=== PATIENT | female | born 1980 | race African-American/Black ===

== ENCOUNTER 2021-09-28 14:24 | Emergency (ER) | payer BC ==
--- OUTSIDE RECORDS SUMMARY | 2021-09-28 14:27 | XMS REPORT | Continuity of Care Document ---
:1980 Author Organization [facility] t Address [address] [place] [address] Care Team Providers Name Role Phone Paul_Adrianne Attending Clinician Unavailable Paul_L Admitting Clinician Unavailable Payers Payer Name Policy Type Policy Number Effective Date Expiration Date S [place] [id number] 2018 00:00:00 [place] Problems Condition Condition Condition Status Onset Resolution Last Treating Co mments Source Name Details Category Date Date Treatment Clinician Date Essential Essential Problem Active [facility]i Hypertensi 4-02 da on on 00:00: Medical 00 Group Obesity Obesity Problem Active [facility] Allergies, Adverse Reactions, Alerts Allergy Allergy Status Severity Reaction(s) Onset Inactive Treating Comm ents Source Name Type Date Date Clinician Prozac Allergy Active [facility] Social History Smoking Status Start Date Stop Date Source Never Smoker [facility] Medications Ordered Filled Start Stop Current Ordering Indication Dosage Frequency Signature Comments Components Source Medication Medication Date Date Medication? Clinician (SIG) Name Name amlodipine amlodipine No amlodipine [facility] 2.5 mg 2.5 mg 2.5 mg da tablet TAKE tablet TAKE tablet Medical 1 TABLET 1 TABLET TAKE 1 Group (2.5 MG (2.5 MG TABLET TOTAL) BY TOTAL) BY (2.5 MG MOUTH 1 MOUTH 1 TOTAL) BY (ONE) TIME (ONE) TIME MOUTH 1 EACH DAY EACH DAY (ONE) TIME EACH DAY famotidine famotidine No famotidine [facility] 20 mg 20 mg 20 mg da tablet TAKE tablet TAKE tablet Medical 1 TABLET BY 1 TABLET BY TAKE 1 Group MOUTH TWICE MOUTH TWICE TABLET BY A DAY A DAY MOUTH TWICE A DAY ketorolac ketorolac No ketorolac [facility] 10 mg 10 mg 10 mg da tablet Take tablet Take tablet Medical 1 tablet 1 tablet Take 1 Group every 6 every 6 tablet hours by hours by every 6 oral route. oral route. hours by oral route. lisinopril lisinopril No lisinopril [facility] 20 20 20 da mg-hydrochl mg-hydrochl mg-hydroch Medical orothiazide orothiazide [facility] 25 mg 25 mg de 25 mg tablet TAKE tablet TAKE tablet 1 TABLET BY 1 TABLET BY TAKE 1 MOUTH MOUTH TABLET BY EVERYDAY AT EVERYDAY AT MOUTH BEDTIME BEDTIME EVERYDAY AT BEDTIME montelukast montelukast No montelukas [facility] 10 mg 10 mg t 10 mg da tablet TAKE tablet TAKE tablet Medical ONE (1) ONE (1) TAKE ONE Group TABLET(S) TABLET(S) (1) BY MOUTH BY MOUTH TABLET(S) ONCE A DAY. ONCE A DAY. BY MOUTH ONCE A DAY. Saxenda 3 Saxenda 3 No Saxenda 3 [facility] mg/0.5 mL mg/0.5 mL mg/0.5 mL da (18 mg/3 (18 mg/3 (18 mg/3 Med ical mL) mL) mL) Group subcutaneou subcutaneou subcutaneo s pen s pen us pen injector injector injector INJECT 3 MG INJECT 3 MG INJECT 3 UNDER THE UNDER THE MG UNDER SKIN PER SKIN PER THE SKIN WEEK WEEK PER WEEK Vitamin D2 Vitamin D2 No Vitamin D2 [facility] 1,250 mcg 1,250 mcg 1,250 mcg da (50,000 (50,000 (50,000 Medica l unit) unit) unit) Group capsule capsule capsule Vital Signs Vital Name Observation Time Observation Value Comments Source BP Diastolic 2021-02-28 00:00:00 77 mm[Hg] [facility] Height 2021-02-28 00:00:00 67 [in_i] [facility] BMI (Body Mass 2021-02-28 00:00:00 33.8 kg/m2 [facility]) Group BP Systolic 2021-02-28 00:00:00 105 mm[Hg] [facility] Body Weight 2021-02-28 00:00:00 216 [lb_av] [facility] BP Diastolic 2021-02-01 00:00:00 81 mm[Hg] [facility] Height 2021-02-01 00:00:00 67 [in_i] [facility] BMI (Body Mass 2021-02-01 00:00:00 34.5 kg/m2 [facility]) Group BP Systolic 2021-02-01 00:00:00 115 mm[Hg] [facility] Body Weight 2021-02-01 00:00:00 220 [lb_av] [facility] BP Diastolic 2019-02-04 00:00:00 87 mm[Hg] [facility] Height 2019-02-04 00:00:00 67 [in_i] [facility] BMI (Body Mass 2019-02-04 00:00:00 36.3 kg/m2 [facility]) Group BP Systolic 2019-02-04 00:00:00 125 mm[Hg] [facility] Body Weight 2019-02-04 00:00:00 232 [lb_av] [facility] BP Diastolic 2019-01-28 00:00:00 81 mm[Hg] [facility] Height 2019-01-28 00:00:00 67 [in_i] [facility] BMI (Body Mass 2019-01-28 00:00:00 5 kg/m2 [facility]) Group BP Systolic 2019-01-28 00:00:00 121 mm[Hg] [facility] Body Weight 2019-01-28 00:00:00 32 [lb_av] [facility] Procedures Procedure Date / Time Performing Clinician Source Performed US, transvaginal 2021-02-28 00:00:00 [facility], screening, 2021-02-01 00:00:00 [facility] MAMMO, screening, 2019-02-04 00:00:00 [facility] Breast Surgery [facility] Plan of Care Planned Activity Planned Date Details Comments Source Diagnostic Test 2021-02-01 CBC w/ auto diff [facility] 00:00:00 [code = CBC w/ Group auto diff] Diagnostic Test 2021-02-01 CMP, serum or [facility] 00:00:00 plasma [code = Group CMP, serum or plasma] Diagnostic Test 2021-02-01 lipid panel, serum [facility] Pending 00:00:00 [code = lipid Group panel, serum] Diagnostic Test 2021-02-01 HBsAg (hepatitis B [facility] Pending 00:00:00 surface Ag), serum Group [code = HBsAg (hepatitis B surface Ag), serum] Diagnostic Test 2021-02-01 TSH + free T4, [facility] Pending 00:00:00 serum [code = TSH Group + free T4, serum] Diagnostic Test 2021-02-01 pap, LB + HPV [facility] 00:00:00 [code = pap, LB + Group HPV] Encounters Start End Encounter Admission Attending Care Care Encounter Source Date/Time Date/Time Type Type Clinicians Facility Department ID 2021-02-28 2021-02-28 Outpatient Paul_L [facility] [id number] [facility] 01:02:00 01:02:00 [facility] 2021-02-28 2021-02-28 [facility] [place] - [id number] [facility] 00:00:00 00:00:00 [facility] MD: [address] [address] , Ph. [phone] 2021-02-01 2021-02-01 [id number] [facility] 04:48:00 04:48:00 [facility] 2021-02-01 2021-02-01 Ros[facility] [place] - [id number] [facility] 00:00:00 00:00:00 [facility] silver MD: [address] [address] , Ph. [phone] 2021-01-11 2021-01-11 Outpatient Rutledge_L [facility] [id number] [facility] 10:27:00 10:27:00 330 [facility] 2020-11-04 2020-11-04 Outpatient Rutledge_L [facility] [id number] [facility] 12:13:00 12:13:00 121 [facility] 2020-07-05 2020-07-05 Outpatient Rutledge_L [facility] [id number] [facility] 10:59:00 10:59:00 921 [facility] 2020-07-01 2020-07-01 Outpatient Rutledge_L [facility] [id number] [facility] 10:40:00 10:40:00 917 [facility] 2019-04-22 2019-04-22 Outpatient Rutledge_L [facility] [id number] [facility] 09:30:00 09:30:00 810 [facility] 2019-02-04 2019-02-04 Ros[facility] [place] - [id number] M [facility] 00:00:00 00:00:00 [facility] MD: [address] [place] [phone] , Ph. [phone] 2019-01-28 2019-01-28 Ros[facility] [place] - [id number] M [facility] 00:00:00 00:00:00 [facility] MD: [address] [place] [phone] , Ph. [phone] Results Test Description Test Time Test Comments Results Result Comments Source pap, LB + HPV 2021-02-08 00:00:00 Test Item Value Reference Range Interpretation Comme nts HPV type-detect 3.0 by next gen sequencing (reflex to HPV-16 ris k not detected assessment status) (test code = HPV type-detect 3.0 by next gen sequencing (reflex to HPV-16 risk assessment status)) liquid Pap test (test code = liquid Pap test) [facility] + [id number] 00:00:00 Test Item Value Reference Range Interpretation Comments HPV type-detect 3.0 by next gen not detected sequencing (reflex to HPV-16 risk assessment status) (test code = HPV type-detect 3.0 by next gen sequencing (reflex to HPV-16 risk assessment status)) liquid Pap test (test code = normal liquid Pap test) [facility] W Auto Differential panel - [id number] 01:59:00 Test Item Value Reference Range Interpretation Comments white blood count (test code = 6.1 K/uL 4.0-11.5 white blood count) red blood count (test code = red 4.85 M/uL 3.80-5.20 blood count) hemoglobin (test code = 11.8 g/dL 10.5-15.7 hemoglobin) hematocrit (test code = 38.2 % 34.0-50.0 hematocrit) MCV [Entitic volume] (test code = 78.8 fL 86-100 L 09677-8) mean corpuscular hemoglobin (test 24.3 pg 26.2-33.4 L code = mean corpuscular hemoglobin) mean corpuscular HGB conc (test 30.9 g/dL 30-34 code = mean corpuscular HGB conc) red cell distribution width (test 17.0 % 12.0-15.5 H code = red cell distribution width) platelet count (test code = 324 K/uL 165-450 platelet count) mean platelet volume (test code = 10.2 fL 9.4-12.6 mean platelet volume) Segmented neutrophils/100 60.2 % 44.4-80.1 leukocytes in Blood (test code = 58474-7) Immature granulocytes [#/volume] 0.0 K/uL 0.0-0.03 H in Blood (test code = 29205-6) lymphocyte% (test code = 30.4 % 10.0-50.0 lymphocyte%) mono % (test code = mono %) 6.2 % 3.6-12.0 eos % (test code = eos %) 2.0 % 0.0-5.4 Basophils/100 leukocytes in 0.7 % 0.1-1.2 Unspecified specimen (test code = 80415-9) Band form neutrophils [#/volume] 3.68 K/uL 1.56-6.13 in Blood (test code = 41983-7) Lymphocytes [#/volume] in 1.9 K/uL 1.18-3.74 Unspecified specimen by Automated count (test code = 99769-4) mono # (test code = mono #) 0.38 K/uL 0.24-0.86 eos # (test code = eos #) 0.12 K/uL 0.04-0.36 basophil # (test code = basophil 0.04 K/uL 0.01-0.08 #) NRBC% (test code = NRBC%) 0 /100 WBC 0-0.2 NRBC# (test code = NRBC#) 0 K/uL [facility], method unspecified - [id number] 01:59:00NeutrophilsBandLymphocyteAtypical LymphMonocyteEosinophilBasophilMetamyelocyteMyelocyteAbs Neutrophil Count (Man)Abs Lymph Count (Man)Abs Monocyte Count (Man)Abs Eosinophil Count (Man)Abs Basophil Count (Man)Platelet EstimatePlatelet MorphologyHypochromasiaPoikilocytosisAnisocytosisOvalocytesToxic Gran ulationHypersegmented PolysRouleauToxic VacuolationSmudge CellsMaLackey Memorial HospitalComprehensive metabolic 2000 panel - Serum or [id number] 01:59:00 Test Item Value Reference Range Interpretation Comments Glucose [Mass/volume] in Serum or 84 mg/dL 74-106 Plasma (test code = 2345-7) Urea nitrogen [Mass/volume] in 11 mg/dL 6-20 Serum or Plasma (test code = 3094-0) osmolality calculated,serum (test 271 mOsm/kg 280-300 L code = osmolality calculated,serum) creatinine (test code = 1.0 mg/dL 0.50-0.90 H creatinine) glomerular filtration rate (test >60.00 code = glomerular filtration rate) Urea nitrogen/Creatinine [Mass 11.0 12-20 L Ratio] in Serum or Plasma (test code = 3097-3) sodium level (test code = sodium 136 mmol/L 135-145 level) potassium level (test code = 3.8 mmol/L 3.5-5.2 potassium level) chloride level (test code = 100 mmol/L 98-108 chloride level) CO2 (test code = CO2) 29 mmol/L 21-32 anion gap (test code = anion gap) 10.8 mEq/L 12-20 L calcium level (test code = 10.5 mg/dL 8.6-10.0 H calcium level) total protein (test code = total 8.0 g/dL 6.6-8.7 protein) albumin (test code = albumin) 4.4 g/dL 3.5-5.2 globulin (test code = globulin) 3.6 gm/dL A/G ratio (test code = A/G ratio) 1.2 >1.0 bilirubin,total (test code = <0.3 0.0-1.2 bilirubin,total) AST/SGOT (test code = AST/SGOT) 21 U/L 15-32 Alanine aminotransferase 12 U/L 0-33 [Enzymatic activity/volume] in Serum or Plasma (test code = 1742-6) Alkaline phosphatase [Enzymatic 90 U/L 35-105 activity/volume] in Serum or Plasma (test code = 6768-6) [facility] panel - Serum or [id number] 01:59:00 Test Item Value Reference Range Interpretation Comments cholesterol level (test code = 177 mg/dL 150-200 cholesterol level) triglycerides level (test code = 166 mg/dL <150 H triglycerides level) HDL cholesterol (test code = HDL 46 mg/dL >65 L cholesterol) LDL cholesterol direct (test code = 105 mg/dL <100 H LDL cholesterol direct) cholesterol risk ratio (test code = 3.847 cholesterol risk ratio) [facility]yrot[facility] [Units/volume] in Serum or [id number] 01:59:00 Test Item Value Reference Range Interpretation Comments Thyrotropin [Units/volume] in 1.08 uIU/mL 0.36-3.74 Serum or Plasma (test code = 3016-3) [facility] (T4) free [Mass/volume] in Serum or Plasma 2021-02-01 01:59:00 Test Item Value Reference Range Interpretation Comments free T4 (test code = free T4) 1.25 NG/dL 0.93-1.7 [facility] RegionHepatitis B virus surface Ag [Presence] in Serum 2021-02-01 01:59:00 Test Item Value Reference Range Interpretation Comments .hepatitis B surface antigen (test negative negative code = .hepatitis B surface antigen) [facility] W Auto Differential panel - [id number] 01:59:00 Test Item Value Reference Range Interpretation Comments white blood count (test code = 6.1 K/uL 4.0-11.5 white blood count) red blood count (test code = red 4.85 M/uL 3.80-5.20 blood count) hemoglobin (test code = 11.8 g/dL 10.5-15.7 hemoglobin) hematocrit (test code = 38.2 % 34.0-50.0 hematocrit) MCV [Entitic volume] (test code = 78.8 fL 86-100 L 35370-5) mean corpuscular hemoglobin (test 24.3 pg 26.2-33.4 L code = mean corpuscular hemoglobin) mean corpuscular HGB conc (test 30.9 g/dL 30-34 code = mean corpuscular HGB conc) red cell distribution width (test 17.0 % 12.0-15.5 H code = red cell distribution width) platelet count (test code = 324 K/uL 165-450 platelet count) mean platelet volume (test code = 10.2 fL 9.4-12.6 mean platelet volume) Segmented neutrophils/100 60.2 % 44.4-80.1 leukocytes in Blood (test code = 43739-7) Immature granulocytes [#/volume] 0.0 K/uL 0.0-0.03 H in Blood (test code = 02794-5) lymphocyte% (test code = 30.4 % 10.0-50.0 lymphocyte%) mono % (test code = mono %) 6.2 % 3.6-12.0 eos % (test code = eos %) 2.0 % 0.0-5.4 Basophils/100 leukocytes in 0.7 % 0.1-1.2 Unspecified specimen (test code = 85750-4) Band form neutrophils [#/volume] 3.68 K/uL 1.56-6.13 in Blood (test code = 09234-8) Lymphocytes [#/volume] in 1.9 K/uL 1.18-3.74 Unspecified specimen by Automated count (test code = 40489-9) mono # (test code = mono #) 0.38 K/uL 0.24-0.86 eos # (test code = eos #) 0.12 K/uL 0.04-0.36 basophil # (test code = basophil 0.04 K/uL 0.01-0.08 #) NRBC% (test code = NRBC%) 0 /100 WBC 0-0.2 NRBC# (test code = NRBC#) 0 K/uL [facility], method unspecified - [id number] 01:59:00NeutrophilsBandLymphocyteAtypical LymphMonocyteEosinophilBasophilMetamyelocyteMyelocyteAbs Neutrophil Count (Man)Abs Lymph Count (Man)Abs Monocyte Count (Man)Abs Eosinophil Count (Man)Abs Basophil Count (Man)Platelet EstimatePlatelet MorphologyHypochromasiaPoikilocytosisAnisocytosisOvalocytesToxic Gran ulationHypersegmented PolysRouleauToxic VacuolationSmudge CellsMer[facility] RegionComprehensive metabolic 2000 panel - Serum or [id number] 01:59:00 Test Item Value Reference Range Interpretation Comments Glucose [Mass/volume] in Serum or 84 mg/dL 74-106 Plasma (test code = 2345-7) Urea nitrogen [Mass/volume] in 11 mg/dL 6-20 Serum or Plasma (test code = 3094-0) osmolality calculated,serum (test 271 mOsm/kg 280-300 L code = osmolality calculated,serum) creatinine (test code = 1.0 mg/dL 0.50-0.90 H creatinine) glomerular filtration rate (test >60.00 code = glomerular filtration rate) Urea nitrogen/Creatinine [Mass 11.0 12-20 L Ratio] in Serum or Plasma (test code = 3097-3) sodium level (test code = sodium 136 mmol/L 135-145 level) potassium level (test code = 3.8 mmol/L 3.5-5.2 potassium level) chloride level (test code = 100 mmol/L 98-108 chloride level) CO2 (test code = CO2) 29 mmol/L 21-32 anion gap (test code = anion gap) 10.8 mEq/L 12-20 L calcium level (test code = 10.5 mg/dL 8.6-10.0 H calcium level) total protein (test code = total 8.0 g/dL 6.6-8.7 protein) albumin (test code = albumin) 4.4 g/dL 3.5-5.2 globulin (test code = globulin) 3.6 gm/dL A/G ratio (test code = A/G ratio) 1.2 >1.0 bilirubin,total (test code = <0.3 0.0-1.2 bilirubin,total) AST/SGOT (test code = AST/SGOT) 21 U/L 15-32 Alanine aminotransferase 12 U/L 0-33 [Enzymatic activity/volume] in Serum or Plasma (test code = 1742-6) Alkaline phosphatase [Enzymatic 90 U/L 35-105 activity/volume] in Serum or Plasma (test code = 6768-6) [facility] panel - Serum or [id number] 01:59:00 Test Item Value Reference Range Interpretation Comments cholesterol level (test code = 177 mg/dL 150-200 cholesterol level) triglycerides level (test code = 166 mg/dL <150 H triglycerides level) HDL cholesterol (test code = HDL 46 mg/dL >65 L cholesterol) LDL cholesterol direct (test code = 105 mg/dL <100 H LDL cholesterol direct) cholesterol risk ratio (test code = 3.847 cholesterol risk ratio) [facility] [Units/volume] in Serum or [id number] 01:59:00 Test Item Value Reference Range Interpretation Comments Thyrotropin [Units/volume] in 1.08 uIU/mL 0.36-3.74 Serum or Plasma (test code = 3016-3) [facility]yrox[facility] (T4) free [Mass/volume] in Serum or Plasma 2021-02-01 01:59:00 Test Item Value Reference Range Interpretation Comments free T4 (test code = free T4) 1.25 NG/dL 0.93-1.7 [facility] RegionHepatitis B virus surface Ag [Presence] in Serum 2021-02-01 01:59:00 Test Item Value Reference Range Interpretation Comments .hepatitis B surface antigen (test negative negative code = .hepatitis B surface antigen) [facility] + [id number] 00:00:00 Test Item Value Reference Range Interpretation Comments HPV type-detect 3.0 by next gen not detected sequencing (reflex to HPV-16 risk assessment status) (test code = HPV type-detect 3.0 by next gen sequencing (reflex to HPV-16 risk assessment status)) General categories normal [interpretation] of Cervical or vaginal smear or scraping by Cyto stain (test code = 88695-3) [facility] W Auto Differential panel - [id number] 10:35:00 Test Item Value Reference Range Interpretation Comments white blood count (test code = 5.7 K/uL 4.0-11.5 white blood count) red blood count (test code = red 4.65 M/uL 3.80-5.20 blood count) Hemoglobin [Mass/volume] in Blood 11.1 g/dL 10.5-15.7 (test code = 718-7) hematocrit (test code = hematocrit) 36.8 % 34.0-50.0 Erythrocyte mean corpuscular volume 79.0 fL 78-98 [Entitic volume] (test code = 98024-2) Erythrocyte mean corpuscular 23.8 pg 26.2-33.4 L hemoglobin [Entitic mass] (test code = 94433-3) mean corpuscular HGB conc (test 30.1 g/dL 31.5-36.2 L code = mean corpuscular HGB conc) red cell distribution width (test 16.4 % 11.5-15.5 H code = red cell distribution width) Platelets [#/volume] in Blood (test 263 K/uL 137-338 code = 63826-1) Platelet mean volume [Entitic 7.5 fL 8.4-11.8 L volume] in Blood (test code = 20883-7) Neutrophils.band form/100 58.3 % 44.4-80.1 leukocytes in Blood (test code = 82462-4) Lymphocytes/100 leukocytes in Body 32.3 % 10.0-50.0 fluid (test code = 43917-5) Monocytes/100 leukocytes in Blood 6.5 % 3.6-12.04 by Automated count (test code = 5905-5) Eosinophils/100 leukocytes in Blood 1.8 % 0.0-5.41 by Automated count (test code = 713-8) Basophils/100 leukocytes in 1.1 % 0.0-0.79 H Unspecified specimen (test code = 49210-8) [facility] 2000 panel - Serum or Plasma 2019-02-04 10:35:00 Test Item Value Reference Range Interpretation Comments glucose (test code = glucose) 80 mg/dL 74-106 Urea nitrogen [Mass/volume] in 11 mg/dL 6-20 Serum or Plasma (test code = 3094-0) Osmolality of Serum or Plasma 280 280-300 (test code = 2692-2) creatinine (test code = 0.9 mg/dL 0.50-0.90 creatinine) glomerular filtration rate (test >60.00 code = glomerular filtration rate) Urea nitrogen/Creatinine [Mass 12.2 12-20 Ratio] in Serum or Plasma (test code = 3097-3) sodium level (test code = sodium 141 mmol/L 135-145 level) Potassium [Moles/volume] in Body 4.0 mmol/L 3.5-5.2 fluid (test code = 2821-7) chloride level (test code = 104 mmol/L 98-108 chloride level) CO2 (test code = CO2) 26 mmol/L 21-32 anion gap (test code = anion gap) 15.0 mEq/L 12-20 calcium level (test code = calcium 9.6 mg/dL 8.6-10.0 level) total protein (test code = total 7.5 g/dL 6.6-8.7 protein) albumin (test code = albumin) 4.0 g/dL 3.5-5.2 globulin (test code = globulin) 3.5 gm/dL A/G ratio (test code = A/G ratio) 1.1 >1.0 bilirubin,total (test code = 0.4 mg/dL 0.0-1.2 bilirubin,total) AST/SGOT (test code = AST/SGOT) 22 U/L 15-32 Alanine aminotransferase 12 U/L 0-33 [Enzymatic activity/volume] in Serum or Plasma (test code = 1742-6) Alkaline phosphatase [Enzymatic 81 U/L 35-105 activity/volume] in Serum or Plasma (test code = 6768-6) [facility] 1996 panel - Serum or [id number] 10:35:00 Test Item Value Reference Range Interpretation Comments cholesterol level (test code = 173 mg/dL 150-200 cholesterol level) triglycerides level (test code = 96 mg/dL <150 triglycerides level) HDL cholesterol (test code = HDL 46 mg/dL >65 L cholesterol) LDL cholesterol direct (test code = 114 mg/dL <100 H LDL cholesterol direct) cholesterol risk ratio (test code = 3.760 cholesterol risk ratio) [facility] [Units/volume] in Serum or [id number] 10:35:00 Test Item Value Reference Range Interpretation Comments Thyrotropin [Units/volume] in 0.83 uIU/mL 0.36-3.74 Serum or Plasma (test code = 3016-3) [facility] (T4) free [Mass/volume] in Serum or Plasma 2019-02-04 10:35:00 Test Item Value Reference Range Interpretation Comments free T4 (test code = free T4) 1.06 NG/dL 0.93-1.7 [facility]
[2021-09-28 17:28] LABS: Absolute Lymphocytes (CBC) 1.4 K/uL (0.7-4.9); Basophils % 0.5 % (0-1.3); Hematocrit 34.1 % (36.0-45.0); Lymphocytes % 19.4 % (15.3-44.8); MPV 7.9 fL (7.6-11.3); Protime INR 1.03; RBC Red Blood Cell Count 4.63 M/uL (3.86-4.86)
[2021-09-28 17:39] LABS: ALT/SGPT 20 U/L (12-78); AST/SGOT 13 U/L (15-37); Albumin 3.5 g/dL (3.4-5.0); Alkaline Phosphatase 100 U/L (45-117); BUN Blood Urea Nitrogen 25 mg/dL (7-18); Bicarbonate 28 mmol/L (21-32); Bilirubin Direct < 0.1 mg/dL (0-0.2); Bilirubin Total 0.2 mg/dL (0.2-1.0); Glucose Level 123 mg/dL (74-106); Magnesium 2.4 mg/dL (1.8-2.4); NT PRO-BNP 12 pg/mL (<125); Potassium 3.3 mmol/L (3.5-5.1); Protein, Total 7.9 g/dL (6.4-8.2); Sodium Level 141 mmol/L (136-145); Troponin (Emerg Dept Use Only) < 0.02 ng/mL (0.0-0.045)
--- NOTE | 2021-09-28 17:39 | RAD REPORT ---
EXAM DESCRIPTION: Mica Single View09/28/2021 5:08 pm CLINICAL HISTORY: Chest pain COMPARISON: 2014 FINDINGS: The lungs appear clear of acute infiltrate. The heart is normal size IMPRESSION: No acute abnormalities displayed
--- NOTE | 2021-09-28 19:45 | ER ---
Nurse's Notes [facility] Name: Beverly Golden Age: 41 yrs Sex: Female : 1980 Arrival Date: 09/28/2021 Time: 14:28 Bed 12 Private MD: FALGUNI MENDOZA Diagnosis: Chest pain, unspecified Presentation: 09/28 14:31 Chief complaint: Patient states: Had CP once 3 weeks ago, once Sunday, and chest ss pressure 1 hour [employer] while working. Some nausea. Coronavirus screen: Vaccine status: Patient reports receiving the 2nd dose of the covid vaccine. Client denies travel out of the [place] in the last 14 days. At this time, the client does not indicate any symptoms associated with coronavirus-19. Ebola Screen: Patient denies travel to an Ebola-affected area in the 21 days before illness onset. Initial Sepsis Screen: Does the patient meet any 2 criteria? No. Patient's initial sepsis screen is negative. Does the patient have a suspected source of infection? No. Patient's initial sepsis screen is negative. Risk Assessment: Do you want to hurt yourself or someone else? Patient reports no desire to harm self or others. Onset of symptoms was September 07, 2021. 14:31 Method Of Arrival: Ambulatory ss 14:31 Acuity: RAPHAEL 3 ss Triage Assessment: 14:33 General: Appears uncomfortable, Behavior is calm, cooperative, appropriate for age. ss Pain: Complains of pain in chest Quality of pain is described as pressure, Pain began 3 hours ago. Neuro: No deficits noted. Cardiovascular: Reports chest pain, Clubbing of nail beds is absent Patient's skin is warm and dry. Respiratory: No deficits noted. GI: Abdomen is round Reports nausea. Historical: - Allergies: 14:32 Lisinopril; ss - PMHx: 14:32 Hypertensive disorder; ss - PSHx: 14:32 breast reduction; ss - Immunization history:: Client reports receiving the 2nd dose of the Covid vaccine, Flu vaccine is not up to date. - Social history:: Smoking status: Patient denies any tobacco usage or history of. Screenin:53 Abuse screen: Denies threats or abuse. Nutritional screening: No deficits noted. ss Tuberculosis screening: No symptoms or risk factors identified. Assessment: 16:53 Reassessment: No changes from previously documented assessment. Patient and/or family ss updated on plan of care and expected duration. Pain level reassessed. Patient is alert, oriented x 3, equal unlabored respirations, skin warm/dry/pink. Vital Signs: 14:31 BP 133 / 83; Pulse 85; Resp 16; Temp 98.1; Pulse Ox 100% ; Weight 102.06 kg; Height 5 ss ft. 7 in. (170.18 cm); Pain 5/10; 14:31 Body Mass Index 35.24 (102.06 kg, 170.18 cm) ED Course: 14:28 Patient arrived in ED. am2 14:28 FALGUNI MENDOZA is Private Physician. am2 14:32 Triage completed. ss 14:33 Arm band placed on. ss 17:00 Initial lab(s) drawn, by me, sent to lab. Inserted saline lock: 20 gauge in right dh3 antecubital area, using aseptic technique. Blood collected. 17:09 XRAY Chest (1 view) In Process Unspecified. DEVYN 18:05 Juan Villegas PA is PHCP. jr8 18:05 Maldonado Santiago MD is Attending Physician. jr8 Administered Medications: No medications were administered Outcome: 20:04 Patient left the ED. bb Signatures: Dispatcher [employer] EDEve Mark RN RN bb Smirch, Shelby, RN RN Juan Villegas PA PA jr8 Lynne Bassett 2 Jessie Alcaraznna [facility]
--- NOTE | 2021-09-28 19:45 | EDPHYS ---
Physician Documentation [facility] Name: Beverly Golden Age: 41 yrs Sex: Female : 1980 Arrival Date: 09/28/2021 Time: 14:28 Bed 12 Private MD: FALGUNI MENDOZA ED Physician Maldonado Santiago HPI: 09/28 16:58 This 41 yrs old Black Female presents to ER via Ambulatory with complaints of Chest jr8 Pain. 16:58 41-year-old female presents with chest pain onset today. Patient describes chest pain jr8 as substernal and constant. Patient states she had a similar episode 3 weeks ago that self resolved. Patient had a second episode on Sunday but also self resolved. Patient states episode today did not improve. Patient denies shortness of breath reports mild nausea, pain does not radiate anywhere. Patient has history of hypertension.. Historical: - Allergies: 14:32 Lisinopril; ss - PMHx: 14:32 Hypertensive disorder; ss - PSHx: 14:32 breast reduction; ss - Immunization history:: Client reports receiving the 2nd dose of the Covid vaccine, Flu vaccine is not up to date. - Social history:: Smoking status: Patient denies any tobacco usage or history of. ROS: 16:58 Eyes: Negative for injury, pain, redness, and discharge, ENT: Negative for injury, jr8 pain, and discharge, Neck: Negative for injury, pain, and swelling, Respiratory: Negative for shortness of breath, cough, wheezing, and pleuritic chest pain, Abdomen/GI: Negative for abdominal pain, nausea, vomiting, diarrhea, and constipation, Back: Negative for injury and pain, MS/Extremity: Negative for injury and deformity, Skin: Negative for injury, rash, and discoloration, Neuro: Negative for headache, weakness, numbness, tingling, and seizure. 16:58 Cardiovascular: Positive for chest pain. Exam: 16:58 Constitutional: This is a well developed, well nourished patient who is awake, alert, jr8 and in no acute distress. Neck: Trachea midline, no thyromegaly or masses palpated, and no cervical lymphadenopathy. Supple, full range of motion without nuchal rigidity, or vertebral point tenderness. No Meningismus. Cardiovascular: Regular rate and rhythm with a normal S1 and S2. No gallops, murmurs, or rubs. Normal PMI, no JVD. No pulse deficits. Respiratory: Lungs have equal breath sounds bilaterally, clear to auscultation and percussion. No rales, rhonchi or wheezes noted. No increased work of breathing, no retractions or nasal flaring. Abdomen/GI: Soft, non-tender, with normal bowel sounds. No distension or tympany. No guarding or rebound. No evidence of tenderness throughout. Back: No spinal tenderness. No costovertebral tenderness. Full range of motion. Skin: Warm, dry with normal turgor. Normal color with no rashes, no lesions, and no evidence of cellulitis. MS/ Extremity: Pulses equal, no cyanosis. Neurovascular intact. Full, normal range of motion. Neuro: Awake and alert, GCS 15, oriented to person, place, time, and situation. Cranial nerves II-XII grossly intact. Motor strength 5/5 in all extremities. Sensory grossly intact. Vital Signs: 14:31 BP 133 / 83; Pulse 85; Resp 16; Temp 98.1; Pulse Ox 100% ; Weight 102.06 kg; Height 5 ss ft. 7 in. (170.18 cm); Pain 5/10; 14:31 Body Mass Index 35.24 (102.06 kg, 170.18 cm) MDM: 17:23 Patient medically screened. [facility] 19:43 Data reviewed: vital signs, nurses notes, lab test result(s), EKG, radiologic studies, jr plain films. Data interpreted: Pulse oximetry: on room air is 100 %. Interpretation: normal. Counseling: I had a detailed discussion with the patient and/or guardian regarding: the historical points, exam findings, and any diagnostic results supporting the discharge/admit diagnosis, lab results, radiology results, the need for outpatient follow up, a advertising internship, to return to the emergency department if symptoms worsen or persist or if there are any questions or concerns that arise at home. ED course: Patient eloped for unknown reason. I discussed with her that she needed a repeat troponin but after that request that her IV be taken out by a nurse and left. Was unable to talk to her before she left.. 09/28 16:51 Order name: Basic Metabolic Panel 09/28 16:51 Order name: CBC with Diff 09/28 16:51 Order name: LFT's; Complete Time: 18:05 ss 09/28 16:51 Order name: Magnesium; Complete Time: 18:05 ss 09/28 16:51 Order name: NT PRO-BNP; Complete Time: 18:05 ss 09/28 16:51 Order name: PT-INR; Complete Time: 18:05 ss 09/28 16:51 Order name: Troponin (emerg Dept Use Only); Complete Time: 18:05 ss 09/28 16:51 Order name: XRAY Chest (1 view); Complete Time: 18:05 ss 09/28 16:51 Order name: EKG; Complete Time: 16:52 ss 09/28 16:51 Order name: Cardiac monitoring; Complete Time: 16:51 ss 09/28 16:51 Order name: EKG - Nurse/Tech; Complete Time: 16:51 ss 09/28 16:51 Order name: Basic Metabolic Panel; Complete Time: 18:05 EDMS 09/28 16:51 Order name: CBC with Automated Diff; Complete Time: 18:05 EDMS 09/28 16:51 Order name: IV Saline Lock; Complete Time: 16:51 ss 09/28 16:51 Order name: Labs collected and sent; Complete Time: 17:04 ss 09/28 16:51 Order name: O2 Per Protocol; Complete Time: 17:04 ss 09/28 16:51 Order name: O2 Sat Monitoring; Complete Time: 17:04 ss Administered Medications: No medications were administered Disposition Summary: 09/28/21 19:44 Eloped Disposition: after being seen by provider jr8 Reason: unknown jr8 Condition: Stable jr8 Diagnosis - Chest pain, unspecified jr8 Addendum: 10/01/2021 07:18 Co-signature as Attending Physician, Maldonado Santiago MD I agree with the assessment and r n plan of care. Attestation: The patient's history, exam findings, diagnostics, and a summary of any interventions or procedures was reviewed in detail with Juan GUAJARDO. Signatures: Dispatcher [facility] Maldonado Santiago MD MD rn Smirch, Shelby, RN RN ss Roszak, Josh, PA PA jr8 Corrections: (The following items were deleted from the chart) 09/28 19:45 19:43 ED course: Patient does not want to wait for second troponin. First troponin is jr8 normal. Other labs unremarkable. We will have her follow-up with cardiology.. jr8
[2021-09-28 20:09] VITALS: BP 133/83; TEMP 98.1; O2SAT 100
== END 2021-09-28 20:04 | disposition left against medical advice (07) ==
LOC: ER 14:24
DX: R07.9 Chest pain, unspecified (principal); I10 Essential (primary) hypertension
CPT/HCPCS: 36415; 71045; 80048; 80076; 83735; 83880; 84484; 85025; 85610; 93005; 99283